=== PATIENT | female | born 1955 | race Caucasian/White ===

== ENCOUNTER 2019-03-17 12:15 | Emergency (ER) | payer MEDICARE, BC ==
[~2019-03-17] VITALS: Ht 160 cm; Wt 72.6 kg
[2019-03-17 13:35] VITALS: BP 149/76
[2019-03-17 14:42] LABS: Urine Bacteria FEW /hpf (None Seen); Urine Blood Negative /uL (Negative); Urine Mucus FEW (None Seen); Urine Specific Gravity 1.023 (1.001-1.035); Urine WBC 1 /hpf (0 - 5)
[2019-03-17 14:43] LABS: Basophils # (auto) 0.1 uL; Basophils % (auto) 0.7 % (0.0-2.0); Eosinophils # (auto) 0.1 uL; Eosinophils % (auto) 0.7 % (0.0-7.0); Hematocrit 40.7 % (36.0-46.0); Hemoglobin 13.9 g/dL (12.2-16.2); Lymphocytes # (auto) 1.6 uL; Lymphocytes % (auto) 19.6 % (10.0-50.0); Mean Corpuscular Hemoglobin 30.1 pg (28.0-32.0); Mean Corpuscular Hgb Conc. 34.2 g/dL (32.0-36.0); Mean Corpuscular Volume 88.2 fL (80.0-100.0); Monocytes # (auto) 0.6 uL; Monocytes % (auto) 6.9 % (0.0-12.0); Neutrophils # (auto) 5.8 uL; Neutrophils % (auto) 72.1 % (37.0-80.0); Platelet Count (auto) 316 10^3/uL (140-450); Red Blood Cells 4.61 10^6/uL (4.0-5.20); Red Cell Distribution Width 12.8 % (11.8-14.3)
[2019-03-17 14:57] LABS: Albumin 3.7 g/dL (3.4-5.0); Anion Gap 9 (5-15); Blood Urea Nitrogen 14 mg/dL (7-18); Calcium 8.5 mg/dL (8.5-10.1); Carbon Dioxide 23 mmol/L (21-32); Chloride 103 mmol/L (98-107); Glucose 109 mg/dL (74-106); Potassium 3.9 mmol/L (3.5-5.1); Sodium 135 mmol/L (136-145)
[2019-03-17 14:59] LABS: Alanine Aminotransferase 26 U/L (13-56); Aspartate Aminotransferase 21 U/L (15-37); BUN/Creatinine Ratio 19.2; GFR African American 103 mL/min; GFR Non-African American 85 mL/min
[2019-03-17 15:03] LABS: Alkaline Phosphatase 98 U/L (45-117); Bilirubin, Total 0.3 mg/dL (0.2-1.0); Total Protein 6.8 g/dL (6.4-8.2)
== END 2019-03-17 15:31 | disposition home or self-care (01) ==
LOC: EDBD 12:15 → ER 12:21
DX: F41.1 Generalized anxiety disorder (principal)
CPT/HCPCS: 36415; 80053; 81001; 84443; 84484; 85025; 93005

== ENCOUNTER 2021-05-13 08:15 | Emergency (ER) | payer MEDICARE, BC ==
[~2021-05-13] VITALS: Ht 160 cm; Wt 78.9 kg
[2021-05-13] MEDS ORDERED: SODIUM CHLORIDE 0.9% 1,000 ML IV ONE ×2 (08:30→09:00)
[2021-05-13] MEDS ORDERED: TAMSULOSIN HYDROCHLORIDE 0.4 MG CAP PO ONE (08:30)
[2021-05-13 09:20] LABS: Urine Bacteria FEW /hpf (None Seen); Urine Blood 2+ /uL (Negative); Urine Mucus FEW (None Seen); Urine Specific Gravity 1.018 (1.001-1.035); Urine WBC 12 /hpf (0 - 5)
[2021-05-13 09:25] LABS: Basophils # (auto) 0.1 10 ^3/uL (0-0.2); Basophils % (auto) 0.9 % (0.0-2.0); Eosinophils # (auto) 0.1 10 ^3/uL (0-0.8); Eosinophils % (auto) 1.2 % (0.0-7.0); Hematocrit 41.1 % (36.0-46.0); Hemoglobin 13.9 g/dL (12.2-16.2); Lymphocytes # (auto) 1.6 10 ^3/uL (0.4-5.4); Lymphocytes % (auto) 20.2 % (10.0-50.0); Mean Corpuscular Hgb Conc. 33.8 g/dL (32.0-36.0); Mean Corpuscular Volume 88.8 fL (80.0-100.0); Monocytes # (auto) 0.5 10 ^3/uL (0-1.3); Monocytes % (auto) 6.6 % (0.0-12.0); Neutrophils # (auto) 5.6 10 ^3/uL (1.6-8.6); Neutrophils % (auto) 71.1 % (37.0-80.0); Red Blood Cells 4.63 10^6/uL (4.0-5.20); Red Cell Distribution Width 12.9 % (11.8-14.3); White Blood Cell 7.9 10^3/uL (4.4-10.8)
[2021-05-13] MEDS ORDERED: KETOROLAC TROMETH 30 MG/ML 1ML VIAL IV ONE (09:30)
[2021-05-13 11:18] LABS: Albumin 3.7 g/dL (3.4-5.0); BUN/Creatinine Ratio 18.1; Bilirubin, Total 0.4 mg/dL (0.2-1.0); Calcium 8.5 mg/dL (8.5-10.1)
[2021-05-13 11:49] VITALS: BP 120/59
== END 2021-05-13 11:52 | disposition home or self-care (01) ==
LOC: ER 08:15
DX: R10.32 Left lower quadrant pain (principal); I70.0 Atherosclerosis of aorta; Z90.710 Acquired absence of both cervix and uterus; Z87.442 Personal history of urinary calculi
CPT/HCPCS: 36415; 74176; 80053; 81001; 84484; 85025; 93005; 96360; 96361; 99285; J7030